=== PATIENT | female | born 1950 | race Caucasian/White ===

== ENCOUNTER 2016-09-20 07:33 | Inpatient (IN) ==
[2016-09-20] MEDS ORDERED: ZOFRAN IV PRN (11:30)
[2016-09-20] MEDS ORDERED: SALINE LOCK IV FLUID XX ONE (11:30)
[2016-09-20] MEDS ORDERED: TYLENOL PO PRN (11:30)
[2016-09-20] MEDS ORDERED: ATIVAN IV PRN (11:37)
[2016-09-20 12:31] LABS: MANUAL DIFF NEEDED? NO
[2016-09-20 12:36] LABS: BASO% 0.1 % (0.0-0.8); EOS# 0.01 X1000 (0.0-0.7); EOS% 0.1 % (0.0-10.0); HEMATOCRIT 35.1 % (37.0-47.0); HEMOGLOBIN 11.9 g/dL (12.0-16.0); IMM GRAN# 0.02 X1000 (0.0-0.04); IMM GRAN% 0.2 % (0.0-0.5); LYMPH# 1.36 X1000 (1.2-3.4); LYMPH% 16.7 % (20.5-51.1); MCH 32.4 PG (27-31); MCHC 33.9 g/dL (33-37); MCV 95.6 FL (81-99); MONO# 0.44 X1000 (0.11-0.59); MONO% 5.4 % (1.7-9.3); MPV 9.3 FL (7.4-10.4); NEUT% 77.5 % (42.2-75.2); PLT 163 X1000 (130-400); RBC 3.67 XMIL (4.2-5.4)
[2016-09-20 12:55] LABS: AGAP 9; ALBUMIN 3.3 g/dL (3.5-5.0); ALKALINE PHOSPHATASE 172 U/L (32-104); BUN 20 mg/dL (8-22); CALCIUM 8.1 mg/dL (8.8-10.2); CHLORIDE 103 mmol/L (98-107); COSMO 277; GOT 24 U/L (10-30); GPT 32 U/L (10-36); POTASSIUM 3.4 mmol/L (3.5-5.1); SODIUM 137 mmol/L (136-145); TCO2 25 mmol/L (25-35); TOTAL BILIRUBIN 0.41 mg/dL (0.20-1.00); TOTAL PROTEIN 6.2 g/dL (6.3-8.3)
--- NOTE | 2016-09-20 12:55 | HISTORY AND PHYSICAL ---
PRIMARY CARE PROVIDER: Dr. Michael Givens. ONCOLOGIST: Dr. Capellan. RADIATION ONCOLOGIST: Dr. Holt. NEUROLOGIST: No neurologist. CHIEF COMPLAINT: Seizure. HISTORY OF PRESENT ILLNESS: Ms. 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 Capellan. She also has a history of having 3 or 4 focal type seizures where she spaces out but is not on any antiepileptic medications at this time. Apparently, around 3:30 this morning, she awoke her with complaints of a headache and then went into a seizure that he states "she had shaking all over". She had bladder incontinence and her eyes fixated up in direction. She was taken to [facility] about 0424. She arrived lethargic and confused. She received 1 mg of Ativan, 2 mg of morphine, 1 g of Dilantin, 2 mg of Zofran, and a liter of IV fluids. She was transferred here for further evaluation by her primary oncologist and for neurology. Per the family, she has been complaining of dizziness for the last year. They had found lesions on her brain at that time but there was no change in size so they were unsure whether it was metastatic cancer until last month when she had a brain MRI on 08/28/2016 which revealed worsening metastatic disease. She had been receiving radiation treatments by Dr. Holt and has received 8 treatments on her brain. She was taking oral chemotherapy pills up until 2 weeks ago. She is on chronic steroids for inflammation in the brain. Upon arrival here, she originally complained of a headache but once evaluated, she denied a headache. She is oriented to name and year. She has dysarthria. She has right-sided hemiparesis. Denies any numbness or tingling but according to the family, she is getting better on speaking. Apparently, they describe something that was like expressive aphasia. She is admitted to the medical floor. We will consult Dr. Capellan and Dr. Sanders. We will also repeat an MRI as she has a definite weakness on the right side. No facial droop noted though. PAST MEDICAL HISTORY: 1. EGFR positive stage IV lung cancer with metastasis to the brain that was diagnosed in 2013 and metastasis diagnosed last month. 2. Hypertension. 3. GERD. 4. Occasional lower extremity ankle swelling. 5. History of DVT or PE. The family was unsure and she has been on Eliquis for that. 6. Three to four seizures since 2014 but all focal type seizures where she spaces out. SURGICAL HISTORY: 1. Hysterectomy. 2. Cholecystectomy. 3. Lung biopsy. 4. Breast biopsy x2. 5. Neck tumor, spine tumor removed. 6. Left ankle surgery. 7. Right ankle surgery. 8. Ear surgery x2 on the eardrum. SOCIAL HISTORY: Denies tobacco. Never smoked. She did work in the textile industry for many years. Denies alcohol or illicit drug use. Lives at home with her . FAMILY HISTORY: Mother had a myocardial infarction. Grandfather had a stroke. Two aunts with breast cancer. REVIEW OF SYSTEMS: Difficult to obtain but she denies pain at this time. ALLERGIES: No known drug allergies. HOME MEDICATIONS: Eliquis 5 mg p.o. twice daily, vitamin D3 1000 units p.o. twice daily, dexamethasone 4 mg p.o. daily, Pepcid 80 mg p.o. daily, losartan/ hydrochlorothiazide 100/12.5 mg 1 tablet p.o. daily. PHYSICAL EXAMINATION: VITAL SIGNS: Temperature is 97.9 degrees, heart rate 56, respiratory rate 20, blood pressure 122/55, O2 saturation 97% on room air. She is 5 feet 3 inches tall, 122 pounds , BMI is 21.6. GENERAL: Ms. Wilson is a 66-year-old, ill-appearing, female. She is in no acute distress but is slightly drowsy. Some difficulty with answering questions and was unsure of what had happened to her. HEENT: Mild abrasion on the tip of her tongue, likely from biting during her seizure. No bruising of the tongue noted. Mucous membranes are dry. Pupils are equal and reactive. Extraocular movements are intact. There is nystagmus noted. NECK: No JVD or carotid bruits noted. CARDIOVASCULAR: S1, S2. Regular rate and rhythm. No rubs, gallops, murmurs. PULMONARY: Clear to auscultation. Bilateral breath sounds. No accessory muscle use or work of breathing noted. On room air. GI: Soft, nontender, nondistended. Positive bowel sounds x4. EXTREMITIES: There are +2 dorsalis and radial pulses. No edema noted. SKIN: Warm, dry, intact. NEUROLOGIC: Oriented to name and to year. Disoriented to place and situation. Moved all extremities with right-sided hemiparesis. She was 3/4 strength on the right and a 4/5 in strength on the left. Denied any numbness or tingling. She had dysarthria. Tongue was midline. Face was symmetric. She did have been nystagmus. LABORATORY DATA: No labs here but labs were obtained through [facility] and all were normal. White blood cells were normal. Hemoglobin and hematocrit were stable. Platelet count was stable. Sodium and potassium were stable. They were reviewed. I do not have them wrote down. IMAGING: Images from outside hospital had a head CT that did not show any acute findings. Had an EKG that showed sinus rhythm. Rate was 71 and a QTc of 456. No chest x-ray there. Will have a repeat MRI here. ASSESSMENT AND PLAN: 1. EGFR positive stage IV lung cancer with brain metastasis. Her original diagnosis of lung cancer was in 2013. She is followed by Dr. Capellan. Her radiation oncologist is Dr. Holt. She had a most recent MRI in August which showed worsening metastasis. She has been on oral prednisone. We will continue that but we will do intravenous Decadron. She takes dexamethasone 4 mg by mouth daily at home. We will do Decadron 4 mg every [address] Capellan has been reconsulted. 2. Generalized seizure with history of focal seizures. This is a new onset generalized seizure, apparently lasted 10 minutes. She had full body contraction with bladder loss and postictal state upon presentation to the previous hospital. Continues to be somewhat postictal. There are some signs of possible stroke. She did have a head CT at the outside hospital that did not show any acute findings. She will be on seizure precautions. We will consult neurology. We will start her on Keppra 1000 mg intravenous twice daily. She received 1 g of Dilantin intravenous bolus at the outside hospital along with 1 mg of Ativan. We will do Ativan as needed here. 3. Hypertension. We will monitor. No medications for now. 4. Possible cerebrovascular accident. She does have right hemiparesis, some dysarthria. We will go ahead and order a repeat MRI. 5. Gastroesophageal reflux disease. Continue with intravenous Pepcid. 6. History of deep venous thrombosis or pulmonary embolism. Family was unaware of which one. She is on Eliquis at home for now. Until we know more of the reason for her seizure, we will do just sequential compression devices for deep venous thrombosis prophylaxis. We will likely need to add subcutaneous Lovenox. Dictated by LAYLA Pederson for Linn Sellers MD cc: LAYLA Pederson MD Naveen T. Lobo, MD Georgie Stanford Eston G. Norwood III, MD The patient was seen and examined by me. I agree with the assessment and plan as dictated. KAREN
[2016-09-20 13:05] LABS: CK PROFILE 195 U/L (24-173)
[2016-09-20 13:19] LABS: CK INDEX 1.7 (0.0-2.5); CK-MB 3.34 ng/mL (0.0-5.0)
--- NOTE | 2016-09-20 13:38 | Diag Imaging Result Doc PS360 ---
MRI BRAIN W W/O CONTRAST - 09/20/2016 INDICATION: stroke/recent seizure COMPARISON: 08/28/2016 FINDINGS: There has been significant increase in size and number of numerous enhancing brain metastases. These involve both cerebral hemispheres, midbrain and raiza, and both cerebellar hemispheres. These measure up to about 2.2 cm. No significant herniation or hydrocephalus. No evidence of hemorrhage. No restricted diffusion. IMPRESSION: Significant increase in size and number of the multiple bilateral brain metastases. No hemorrhage or restricted diffusion. Electronically signed by Rob Cotton 09/20/2016 1:36 PM
[2016-09-20 13:40] LABS: SED RATE 41 mm/hr (0-20)
--- NOTE | 2016-09-20 13:42 | Diag Imaging Result Doc PS360 ---
EXAM: CHEST-PORTABLE INDICATION: seizure TECHNIQUE: One view COMPARISON: 09/30/2014 FINDINGS: The lungs are grossly clear. There is no discrete pleural fluid collection or pneumothorax. The cardiomediastinal silhouette and central vasculature are grossly unremarkable. There is a stable healed rib fracture on the left. IMPRESSION: No evidence of acute pathology by plain radiograph. Electronically signed by Lemuel Sanabria 09/20/2016 1:40 PM
[2016-09-20] MEDS ORDERED: POTASSIUM CHLORIDE 40 MEQ/SWI 40 MEQ/100 ML IVPB IV SCH (14:00)
[2016-09-20] MEDS ORDERED: NS 1,000 ML ONE (15:07)
--- NOTE | 2016-09-20 15:18 | CONSULTATION ---
DATE OF CONSULTATION: 09/20/2016 ROOM 356. HISTORY OF PRESENT ILLNESS: Ms. Wilson is 66 years old with metastatic brain disease and recent seizure. She is attentive but the history she provided personally to me seems likely not completely valid. She reports no previous history of seizure and no recollection of recent episode. The admission note reports there is a history of previous partial seizure episodes and the history sounds like generalized clonic activity just prior to this admission early this morning. Ms. Wilson told me that she does not have a significant headache. She clearly has right hemiparesis on my examination but she told me she had not been aware of focal weakness, numbness, vision loss, significant headache. Workup includes brain MRI today showing evidence of widespread metastatic disease which is more prominent than on scan done 08/28/2016 and the August scan showed findings worse than on the May scan. Lab work shows mildly elevated liver enzymes and mildly elevated serum CK level. Other chemistry is unremarkable. She was reportedly loaded with phenytoin 1 g at an outside hospital and phenytoin level is 15.2 here today. She has also started levetiracetam here. I believe that she has not had a definite clinical seizure since coming to this hospital. Her home medicines include dexamethasone 4 mg daily, Eliquis, and others. PHYSICAL EXAMINATION: On examination, Ms. Wilson is awake and alert. She answered questions appropriately. She was not able to discuss recent news or name the president. She did not identify this hospital by name. She was not able to tell me the correct day of the week. Her speech is not significantly dysarthric. She followed simple commands well. She had a little bit of trouble following commands requiring right/left distinction and digit distinction. Facial motility is symmetric. She has good power in the left limbs. I can overcome the right deltoid grading 3/5, right wrist extensor 4/5. She did a little better with left hand [id number] than with the right. I did not test her gait. She reports equal pinprick appreciation over the arms and legs, and over both sides of the face. IMPRESSION: Widespread metastatic disease, multiple brain lesions in both hemispheres documented by imaging. She had a recent episode typical of generalized convulsion and I believe there is some history reportedly consistent with partial seizures. Clearly, she will need to be managed with medicine for seizure control. She has a mid therapeutic phenytoin level today and she has started levetiracetam 1000 mg IV q.12 hours ordered this hospitalization. I do not have any urgent suggestion. Will consider EEG to rule out ongoing seizure if she has persistant altered state or fluctuating level of consciousness. We can titrate levetiracetam dose if she has more episodes. If she seems groggy or has other adverse effects with levetiracetam, we can choose a different medicine for seizure control. I would consider increasing the dexamethasone dose but will leave that decision to her oncologist. Prognosis is very poor. She has right hemiparesis and possible expressive more than receptive dysphasia now and I do not know whether or not that is a baseline finding or if it is recent. If that is recent, it could be postictal and suggests one of the left hemisphere lesions is responsible for her seizure. Thank you for asking me to see Ms. Wilson. cc: Wilian Sanders III, MD MTDIleana
[2016-09-20] MEDS: KEPPRA 500 MG in NS 100 ML IV SCH (15:32)
[2016-09-20] MEDS: LOVENOX SUBQ SCH (15:40)
[2016-09-20] MEDS: DECADRON IV SCH ×2 (15:40→21:38)
[2016-09-20] MEDS: SODIUM CHLORIDE 0.9% INJ SCH (15:41)
[2016-09-20] MEDS: PEPCID IV SCH (15:41)
[2016-09-20] MEDS: POTASSIUM CHLORIDE 20 MEQ/SWI 20 MEQ/100 ML IVPB IV SCH ×2 (15:41→23:39)
[2016-09-20 16:10] LABS: URINE MICRO REVIEW NEEDED? NO; URINE SOURCE VOIDED
[2016-09-20 16:13] LABS: BILIRUBIN URINE NEGATIVE (NEGATIVE); BLOOD URINE SMALL (NEGATIVE); COLOR YELLOW; GLUCOSE URINE NEGATIVE (NEGATIVE); LEUKOCYTES URINE NEGATIVE (NEGATIVE); NITRITE URINE NEGATIVE (NEGATIVE); PROTEIN URINE NEGATIVE (NEGATIVE); SP GRAVITY URINE 1.023; TURBIDITY URINE CLEAR (CLEAR); UROBILINOGEN URINE NORMAL (NORMAL)
[2016-09-20 16:14] LABS: UR EPITHELIAL CELLS <10 /HPF (<10); URINE BACTERIA NEGATIVE /HPF; URINE RBC <10 /HPF (<10); URINE WBC <10 /HPF (<10)
--- NOTE | 2016-09-20 16:37 | ECHO REPORT ---
ORDER DATE: 09/20/2016 MEASUREMENTS: Left ventricular end-diastolic diameter 4.0, systolic diameter 2.0. Posterior wall thickness 1.2, septal thickness 1.2, left atrium 4.2, aortic root 2.9. SUMMARY: 1. Technically difficult study due to limited acoustic window quality. 2. Aortic valve is trileaflet and opens normally on 2-dimensional images. Peak gradient across the aortic valve is 10 mmHg. Mitral, tricuspid, and pulmonic valves are without structural abnormality with very mild mitral regurgitation, trace tricuspid regurgitation, and mild pulmonic insufficiency. Estimated systolic PA pressure by Doppler is 30 mmHg. The aortic root is normal in size. 3. Normal left ventricular chamber size with mild concentric left hypertrophy is demonstrated. Estimated left ejection fraction is greater than 70%. No regional wall motion abnormalities are evident. Doppler suggests grade 1 left ventricular diastolic dysfunction. There is a mild resting gradient in left ventricular outflow tract of approximately 10 mmHg. Left atrium is mildly enlarged. Right atrium and right ventricle are of normal size with grossly preserved right ventricular systolic function. 4. No pericardial effusion. 5. Inferior vena cava not seen. CONCLUSIONS: 1. Technically difficult study. 2. Very mild mitral regurgitation. 3. Trace tricuspid regurgitation with estimated systolic PA pressure of 30 mmHg. 4. Mild concentric left hypertrophy. Estimated left ejection fraction greater than 70%. 5. Grade 1 left ventricular diastolic dysfunction. 6. Mild left atrial enlargement. 7. Very mild resting gradient in left ventricular outflow tract. cc: MD Linn Jean MD
--- NOTE | 2016-09-20 16:43 | EKG Report ---
Test Performed on : 09/20/2016 11:59:09 AM Test Reason : tom/tachy reported Blood Pressure : / mmHG Vent. Rate : 059 BPM Atrial Rate : 059 BPM P-R Int : 176 ms QRS Dur : 140 ms QT Int : 460 ms P-R-T Axes : 055 021 019 degrees QTc Int : 455 ms Sinus bradycardia. Right bundle branch block Abnormal ECG No previous ECGs available Confirmed by Jaky Cosby MD ([id number]) on 09/22/2016 12:58:23 PM
--- NOTE | 2016-09-20 16:55 | CONSULTATION ---
DATE OF CONSULTATION: 09/20/2016 REASON FOR CONSULTATION: The patient is known to us with stage IV non-small- cell lung cancer. HISTORY OF PRESENT ILLNESS: This patient who is known to us with stage IV non- small-cell lung cancer currently off treatment except for Zometa due to begin Keytruda in the near future apparently had a severe headache overnight took some Motrin and then was noted to have a tonic clonic seizure by her with slurred speech and bladder incontinence as well as right-sided hemiparesis. The patient was taken to [facility] where a CT of the head was obtained which showed no acute process. An MRI at our facility is currently pending. She has had some questionable brain metastases, however, recently an MRI of the brain on 02/2017 did confirm worsening metastatic disease and she was referred to Dr. Encinas to initiate radiation therapy. The patient does have dysarthria as well as right-sided hemiparesis. Neurology has been consulted. Tongue is midline and there is no facial droop noted. The patient does have a remote history of seizures but she has not been on any preventative medication. REVIEW OF SYSTEMS: Negative unless indicated in the HPI. PAST MEDICAL HISTORY: Stage IV EGFR negative [id number] lung cancer, Meniere's disease with chronic dizziness, and history of DVT/PE status post IVC filter. The patient is on Eliquis. The patient does have a history of seizures but she is not on any preventative medication. Hypertension and GERD. SOCIAL HISTORY: The patient denies illicit drugs, alcohol, or tobacco use. She has a very supportive family. HOME MEDICATIONS: Eliquis, losartan/hydrochlorothiazide, Pepcid, and dexamethasone. PHYSICAL EXAMINATION: Vital Signs: Stable. General: This is a chronically ill-appearing female in no acute distress. HEENT: The head is normocephalic, atraumatic. Pupils are equal, round, and symmetric. Mucous membranes are dry. Tongue is midline. Cardiovascular: S1, S2 audible to auscultation with no heaves, lifts, thrills, or murmurs. Pulmonary: Breath sounds are clear to auscultation with normal respiratory effort. GI: Abdomen is soft and nondistended. Positive bowel sounds in all four quadrants. Extremities: There is no edema. Skin: No petechia, ecchymosis, or rash. Neurologic: Alert, oriented to person and time. There is right- sided hemiparesis noted. She is very sleepy. LABORATORY DATA: MRI of the brain is pending. WBC is 8.16, hemoglobin 11.9, hematocrit 35.1, and platelet count 163,000. Sodium is 137, potassium 3.4, BUN 20, and creatinine 0.6. Total Dilantin is 15.20. ASSESSMENT AND PLAN: 1. Stage IV [id number] lung cancer with worsening brain metastases. She has been undergoing radiation per Dr. Holt. IV Decadron has already been initiated per the hospitalist. 2. Seizures. The patient is currently on Keppra. Previous head CT at an outside hospital did not show any acute findings. Neurology has been consulted. MRI of the brain is pending. Could be from cerebral edema. Again, IV steroids have already been ordered as above. 3. Previous deep vein thrombosis/pulmonary embolism status post inferior vena cava filter. She is on Eliquis at home. We will order Lovenox. 4. Gastrointestinal prophylaxis. We will order a proton pump inhibitor. Dictated by LAYLA Hernandez for Rashard Capellan MD cc: LAYLA Hernandez MD [facility]
[2016-09-20] MEDS ORDERED: KEPPRA 1,000 MG in NS 100 ML IV SCH (21:00)
[2016-09-21] MEDS: PEPCID IV SCH ×2 (00:31→11:37)
[2016-09-21] MEDS: DECADRON IV SCH ×4 (00:32→17:47)
[2016-09-21] MEDS: KEPPRA 500 MG in NS 100 ML IV SCH ×2 (03:09→14:27)
[2016-09-21 06:19] LABS: MANUAL DIFF NEEDED? NO
[2016-09-21 06:33] LABS: HEMATOCRIT 35.7 % (37.0-47.0); HEMOGLOBIN 12.1 g/dL (12.0-16.0); LYMPH% 15.2 % (20.5-51.1); MCH 32.5 PG (27-31); MCHC 33.9 g/dL (33-37); MONO# 0.04 X1000 (0.11-0.59); MPV 9.4 FL (7.4-10.4); NEUT% 83.8 % (42.2-75.2); PLT 178 X1000 (130-400); RBC 3.72 XMIL (4.2-5.4)
[2016-09-21 06:34] LABS: INR 1.01; PROTIME 10.6 Seconds (9.2-11.7); PTT 28.7 Seconds (22.0-36.0)
[2016-09-21] MEDS ORDERED: PROTONIX PO SCH (07:00)
[2016-09-21 07:12] LABS: AGAP 10; ALBUMIN 3.4 g/dL (3.5-5.0); ALKALINE PHOSPHATASE 173 U/L (32-104); BUN 15 mg/dL (8-22); CALCIUM 7.9 mg/dL (8.8-10.2); CHLORIDE 106 mmol/L (98-107); COSMO 282; GOT 21 U/L (10-30); GPT 29 U/L (10-36); MAGNESIUM 2.2 mg/dL (1.5-2.7); POTASSIUM 4.9 mmol/L (3.5-5.1); SODIUM 140 mmol/L (136-145); TCO2 24 mmol/L (25-35); TOTAL PROTEIN 5.9 g/dL (6.3-8.3)
[2016-09-21] MEDS ORDERED: SODIUM CHLORIDE 0.9% INJ SCH (07:30)
[2016-09-21] MEDS ORDERED: PROTONIX IV SCH (07:30)
[2016-09-21] MEDS: LOVENOX SUBQ SCH (14:26)
--- NOTE | 2016-09-21 15:06 | PROGRESS NOTE ---
DATE: 09/21/2016 Ms. Wilson has not had a definite clinical seizure today. I discussed the seizure management options with her . The reports that she had 3 or 4 seizures over a period of a few years, with the last recognized seizure about a year ago. These were typical left hemisphere focal spells with the face pulled toward the right, facial twitching, and right arm jerking. Each of these resolved spontaneously. She did not have a significant postictal state. At that time, she did not have any persistent focal deficit. She was not treated with medicine for seizure control. In the last several months she has developed right-sided weakness and occasional trouble finding words, stammering speech. She had a more violent convulsion prompting this admission. Her reports 45 minutes of alternating generalized rigidity and jerking, somnolence, facial twitching, and continued unresponsiveness over that time. He has never seen her have an episode like that in the past. Here, imaging shows significant progression of her brain disease. Her is aware of this. Decisions have been made for conservative management. I think treating her for her seizure is consistent with this conservative management. We can continue levetiracetam since that is available in tablet, liquid, or parenteral if needed. I told the to let us know if he recognizes any evidence of levetiracetam toxicity. I do not have any other suggestion for her now. Thanks for asking me to see Ms. Wilson. cc: Wilian Sanders III, MD
--- NOTE | 2016-09-21 18:08 | PROGRESS NOTE ---
DATE: 09/21/2016 She is a little more comfortable. She has some confusion intermittently. Her is at bedside but does not appear to be any distress at this time. No nausea. Breathing comfortably. Temp 97.5 degrees, pulse 66, respirations 16, blood pressure 114/72.HEENT: Pupils are equal, round. Lungs: Are clear in all lung pearson. Cardiovascular: Regular rhythm and rate without murmur or S3. Abdomen: Soft. Skin: Is warm and dry. Urine output about 800 mL. LAB: White count 3940, hematocrit 35, platelet count 178,000. Sodium 140, potassium 4.9, chloride 106, BUN 15, creatinine 0.6. Liver functions about the same. Alkaline phosphatase 173. Liver enzymes normal. ASSESSMENT AND PLAN: 1. Stage IV non-small cell lung cancer with worsening brain metastasis and undergoing radiation per Dr. Holt. IV Decadron had already been initiated per hospitalist. 2. Seizures. Patient currently on Keppra. Previous head CT at an outside hospital did not show any acute findings but MRI of the brain, pending but she has had increased metastatic load, intercerebral disease. 3. Previous deep venous thrombosis, pulmonary embolism. She has an inferior vena cava filter. 4. Gastrointestinal prophylaxis. She is on a proton pump inhibitor. Dr. Sanders is following. Consultation yesterday. 5. She has metastatic brain disease and recent seizure. She has had has no previous history of seizure. No recollection of recent episode at home. She clearly has a right hemiparesis. MRI shows evidence of widespread metastatic disease. More prominent than on the scan done on 08/28/2016 and August scan showed findings worse than May so widespread metastatic disease. Multiple brain lesions, both hemispheres documented on imaging. She is on . We will try to manage seizure control on levetiracetam 1000 mg IV q.12. cc: Satnam Mesa MD
[2016-09-22] MEDS: PEPCID IV SCH (01:04)
[2016-09-22] MEDS: DECADRON IV SCH ×2 (01:04→05:36)
[2016-09-22] MEDS: KEPPRA 500 MG in NS 100 ML IV SCH (01:04)
[2016-09-22] MEDS: SODIUM CHLORIDE 0.9% INJ SCH (01:04)
[2016-09-22 12:09] VITALS: BP 131/60
--- NOTE | 2016-09-22 13:37 | DISCHARGE SUMMARY ---
ADMISSION DATE: 09/20/2016 DISCHARGE DATE: 09/22/2016 PRIMARY CARE PROVIDER: Dr. Michael Givens. ONCOLOGIST: Dr. Rashard Capellan. RADIATION ONCOLOGIST: Dr. Holt. HISTORY OF PRESENT ILLNESS AND HOSPITAL COURSE: Ms. Wilson is a 66-year-old white female with history of stage IV EGFR positive lung cancer that has metastasized to the brain, initially diagnosed in 2013, followed by Dr. Capellan. History of 3-4 focal-type seizures where she spaces out, but was not on any epileptic medication. Apparently, at around 3:30 on 09/20/2016, she woke her and complained of headache, and then went into seizure. Was shaking all over, bladder incontinent, eyes fixed in one direction. She was taken to [facility] at 4:24 in the morning. Arrived lethargic and confused. Received 1 mg Ativan, 2 mg of morphine, Dilantin, and 1 L of IV fluids. Transferred for evaluation here. Family stated that she has been complaining of dizziness for the last year. They found lesions in her brain and there was no change in size from last year. Unsure whether it was metastatic cancer until last month, when she had a brain MRI on 08/28/2016 that revealed worsening metastatic disease. She has been receiving radiation treatments per Dr. Holt and received 8 treatments to the brain. Has taken oral chemotherapy pills for 2 weeks. She is on chronic steroids for inflammation. She has been complaining of headache. Originally complained of headache, but once evaluated she denied any headache. Anyway, she was admitted here and was on steroids, and Dr. Capellan evaluated. Dr. Sanders was involved and consulted on 09/20/2016. Did not have any suggestions. He considered EEG to rule out ongoing seizure, but titrated the levetiracetam and can titrate it up more if she has more episodes. She wanted to go home. She has multiple brain lesions in both hemispheres documented on imaging and she had an episode of typical generalized convulsive, and there is some history that suggests partial seizures, as well. Discharged her home. DISCHARGE MEDICATIONS: She will be taking her Decadron. I believe she has her seizure medication, Keppra, which is 500 mg twice a day. She is to follow up with Dr. Capellan and her primary care. Inventory of medications: She is on Eliquis 5 mg b.i.d., vitamin D3 at 1000 mg b.i.d., dexamethasone 4 mg, which will probably go up to twice a day, Pepcid 80 mg p.o. daily, and she takes losartan/ hydrochlorothiazide 100/12.5 one a day. Continue those. cc: Satnam Mesa MD
[2016-09-22] MEDS ORDERED: DECADRON IV SCH (18:00)
== END 2016-09-22 14:42 | disposition home or self-care (01) ==
LOC: SUATTDRO 07:33 → DIRADM 07:33 → 3N 10:05
PROVIDERS: ATTEND Emergency Medicine